=== PATIENT | male | born 1950 | race Caucasian/White ===

== ENCOUNTER → 2017-01-06 | Outpatient (CLI) | payer OTHER ==
[~2017-01-06] MED LIST: ATIVAN-DPS0.5 MG PO; COLACE-DPS100 MG PO; COMPAZINE10 MG PO; DECADRON-DPS4 MG PO; DELTASONE DPS20 MG PO; DUONEB DPS3 ML IH; FOLVITE-DPS1 MG PO; HABITROL DPS21 MG TP; HYDROCODON-ACE1 EAC4 PO; KLOR-CON M2020 ME1 PO; MAALOX DPS30 ML PO; NYSTATIN CREAM15 GM TP; PAXIL DPS20 MG PO; PEPCID DPS20 MG PO; TYLENOL DPS325 MG PO; VALIUM-DPS5 MG PO; VANTIN DPS200 MG PO
== END | disposition home or self-care (01) ==
LOC: PTH.S 08:35
DX: C34.91 Malignant neoplasm of unspecified part of right bronchus or lung (principal); J90 Pleural effusion, not elsewhere classified; R59.0 Localized enlarged lymph nodes

== ENCOUNTER → 2017-02-07 | Outpatient (CLI) | payer MEDICARE | END | disposition home or self-care (01) | LOC: RAD.S 14:02 | PROC: 0W993ZZ Drainage of Right Pleural Cavity, Percutaneous Approach (ICD-10-PCS; principal; 2017-02-07) | DX: R06.02 Shortness of breath (principal); C34.91 Malignant neoplasm of unspecified part of right bronchus or lung; J90 Pleural effusion, not elsewhere classified; R91.8 Other nonspecific abnormal finding of lung field ==

== ENCOUNTER 2017-02-26 09:30 | Observation (INO) | payer MEDICARE ==
[~2017-02-26] VITALS: Ht 177.8 cm; Wt 62.8 kg
--- NOTE | ~2017-02-26 | DS ---
ADMIT: 02/26/2017 RM/LOC: 404 [facility] MR#: [id number] [address] [address] ESTEFANY WHITE [address] [place] [address] General Discharge Summary SEX: M AGE: 67 : 1950 ADMISSION DATE: 02/26/2017 DISCHARGE DATE: 02/28/2017 HISTORY OF PRESENT ILLNESS: This is a 67-year-old male patient, who presented to emergency room after falling out of bed the morning of admission while he was turning to get out of bed. His did call the oncologist, who recommended that he come to the emergency room because he was predisposed to bleeding from recent chemotherapy that he is receiving for metastatic lung cancer. There was concern in the emergency room that he was screening positive for early sepsis syndrome. The Emergency Department called and we made arrangements for admission and further evaluation. HOSPITAL COURSE: He was admitted inpatient to PCU. Started on Zosyn and IV vancomycin after appropriate cultures were undertaken. His DNR/DNI status was continued. I did not feel after further assessment that he was septic. He responded to fluid hydration and I diagnosed him with dehydration and malnutrition. He was orthostatic, but this improved with transfusion of 2 units of packed red blood cells for hemoglobin of 6.4 and anemia of chronic disease. He was given nutritional support and serial hemoglobin and hematocrit was followed. On 02/28/2017, his hemoglobin was 8.3, and his status improved with overall improved orthostatic readings. He was dismissed home with plans to return to my clinic for repeat lab, CBC and BMP within 5-7 days of dismissal. He was dismissed on: 1. Decadron 4 mg daily. 2. Folvite 1 mg daily. 3. Klor-Con 20 mEq daily. 4. Paxil 20 mg daily. 5. Protonix 40 mg daily. Hao Leonard DO/ nela JOB #: [id number] CC: Hao Leonard DO, Attending Physician Hao Leonard DO, Family Physician
[~2017-02-26 09:30] MED LIST changes: -COLACE-DPS100 MG PO; -COMPAZINE10 MG PO; -DECADRON-DPS4 MG PO; -DELTASONE DPS20 MG PO; -FOLVITE-DPS1 MG PO; -HYDROCODON-ACE1 EAC4 PO; -KLOR-CON M2020 ME1 PO; -MAALOX DPS30 ML PO; -NYSTATIN CREAM15 GM TP; -PAXIL DPS20 MG PO; -TYLENOL DPS325 MG PO; -VANTIN DPS200 MG PO
--- NOTE | 2017-02-26 16:33 | ER ---
ADMIT: 02/26/2017 RM/LOC: 404 [facility] MR#: [id number] [address] [address] ESTEFANY WHITE [address] [place] [address] Emergency Room Report SEX: M AGE: 67 : 1950 DATE: 02/26/2017 CHIEF COMPLAINT: Head injury. HISTORY OF PRESENT ILLNESS: A 67-year-old male, who presents with his after falling out of bed this morning. The patient reports he was turning to get out of bed, did not quite get his feet off the bed when he fell out and struck his head. They did call his oncologist who recommended he be seen in the ER as a chemotherapy agent he is on does predispose into some bleeding per the report. The patient is currently being treated with chemotherapy for lung cancer. Denies any loss of consciousness. No nausea, vomiting, or any other injury. Did sustain a cut to his left forehead. He denies any pain at this time. Per his 's report, he has been somewhat less active the last 2 days, primary laying in bed. He does primarily get feedings via tube. COURSE IN THE EMERGENCY ROOM: The patient was seen and examined. He does initially present with some tachycardia and tachypnea. Screening positive for SIRS did trigger basic lab returns with lactic acid 3.8, did proceed with septic workup at this time. PHYSICAL EXAM: GENERAL: No acute distress. He is alert. HEAD: He does have a flap-like laceration on the left forehead, which was repaired with Dermabond. NECK: Nontender. Painless range of motion. EYES: Equal and reactive. Extraocular muscles are intact. Pharynx is nonerythematous. NEURO: He is alert. He is oriented and cooperative with exam. Cranial nerves are normal as tested. Sensation is intact in the upper and lower extremities. Motor is equal in upper and lower extremities. CHEST: Nontender. He does have some decreased breath sounds in the right. Some faint rhonchi, left greater than right. He is tachycardic. ABDOMEN: Nontender. SKIN: Warm and dry. Laceration as above. LABORATORY STUDIES: White count 4.5, hemoglobin 7.6, hematocrit 22.1, platelets 87. Chemistry; sodium 132, potassium 3.8, BUN 18, glucose 120, creatinine 0.5, mag was 1.2, calcium 7.7, albumin 2.6. UA unremarkable. Lactic acid 3.5. CT head was negative. Chest x-ray, unchanged, does have a right pleural effusion, largely unchanged from x-ray obtained yesterday. I did start him on Zosyn and vancomycin. I did give him a liter of normal ADMIT: 02/26/2017 RM/LOC: 404 [facility] MR#: [id number] [address] [place] [id number] ESTEFANY WHITE [facility] [place] [address] Emergency Room Report SEX: M AGE: 67 : 1950 saline. I also gave him mag 2 mg IV. I did call Dr. Leonard, made him aware of the patient. He will admit the patient to PCU for further management at this time. IMPRESSION: 1. Sepsis, unknown source. 2. Fall. 3. Lung cancer, on aggressive chemotherapy. 4. Laceration, left forehead. DISPOSITION: Patient will be admitted to the floor under the care of Dr. Leonard in stable condition. AYAN Lyn / Walt Sexton MD / nela JOB #: [id number] CC: Hao Leonard DO, Attending Physician Hao Leonard DO, Family Physician
[2017-03-01] MEDS ORDERED: KLOR-CON M2020 ME1 PO (18:04)
[2017-03-01] MEDS ORDERED: DECADRON-DPS4 MG PO (18:04)
[2017-03-01] MEDS ORDERED: PAXIL DPS20 MG PO (18:05)
[2017-03-01] MEDS ORDERED: PEPCID DPS20 MG PO (18:05)
[2017-03-01] MEDS ORDERED: COMPAZINE10 MG PO (18:05)
[2017-03-01] MEDS ORDERED: FOLVITE-DPS1 MG PO (18:05)
[2017-04-05] MEDS ORDERED: DELTASONE DPS20 MG PO (10:53)
[2017-04-05] MEDS ORDERED: COLACE-DPS100 MG PO (10:55)
[2017-04-05] MEDS ORDERED: VANTIN DPS200 MG PO (10:55)
[2017-04-05] MEDS ORDERED: MAALOX DPS30 ML PO (10:56)
[2017-04-05] MEDS ORDERED: HYDROCODON-ACE1 EAC4 PO (10:56)
[2017-04-05] MEDS ORDERED: TYLENOL DPS325 MG PO (10:56)
[2017-04-05] MEDS ORDERED: NYSTATIN CREAM15 GM TP (10:57)
--- NOTE | 2017-04-12 08:09 | HP ---
ADMIT: 02/26/2017 RM/LOC: 404 [facility] MR#: [id number] [id number] [place], [place] [address] ESTEFANY WHITE [address] [place] [address] History and Physical SEX: M AGE: 67 : 1950 CORRECTED: 04/11/2017 0537 [facility] DATE OF SERVICE: HISTORY: The patient fell out of bed on the morning of admission and was brought to the emergency room after his contacted the oncologist. He does have a history of metastatic lung cancer with malnutrition, anemia, underlying COPD, and prior history of alcohol abuse. MEDICATIONS: At the time of admission include: 1. Klor-Con. 2. Nystatin. 3. Dexamethasone. 4. Folate. 5. Compazine. 6. Paxil. 7. Omeprazole. For specifics of dosing, please refer to his admission orders. SOCIAL HISTORY: He is disabled/retired secondary to his lung cancer. He is . FAMILY HISTORY: Noncontributory. REVIEW OF SYSTEMS: GENERAL: Weakness and orthostatic-like symptoms. No chest pain, palpitations, fevers, chills, nausea, vomiting, diarrhea, or obvious bleeding. On exam, thin frail and orthostatic. HEART: Regular. LUNGS: Clear. ABDOMEN: Scaphoid. Soft, nontender. No edema. IMPRESSION: Initially the impression in the emergency room was that he was septic with early sepsis/systemic inflammatory response syndrome. After further evaluation, it became apparent that he is not septic and we admitted him with orthostatic hypotension, dehydration, and anemia for further assessment and intervention. Hao Leonard DO/ modl JOB #: [id number] CC: Hao Leonard DO, Attending Physician Hao Leonard DO, Family Physician CORRECTED: 04/11/2017 0537 NJV
== END 2017-02-28 16:56 | disposition home or self-care (01) ==
LOC: ER 09:30 → 4PCU 12:40
PROVIDERS: ADMIT Internal Medicine
DX: E86.0 Dehydration (principal); C34.90 Malignant neoplasm of unspecified part of unspecified bronchus or lung; Z79.899 Other long term (current) drug therapy